=== PATIENT | female | born 1985 | race Two or more races ===

== ENCOUNTER 2022-07-08 10:09 | Emergency (ER) | payer OTHER ==
[~2022-07-08] VITALS: Ht 157.5 cm; Wt 68.0 kg
== END 2022-07-08 13:18 | disposition home or self-care (01) ==
LOC: ER 10:09
DX: R05.8 Other specified cough (principal); R53.81 Other malaise; R09.81 Nasal congestion; B34.9 Viral infection, unspecified; Z88.0 Allergy status to penicillin; Z20.822 Contact with and (suspected) exposure to COVID-19